=== PATIENT | female | born 1995 | race Caucasian/White ===

== ENCOUNTER → 2020-01-19 14:43 | Outpatient (BNVA) | payer BC, OTHER, SELFPAY | PROVIDERS: Family Provider Family Medicine; PCP Family Medicine; Visit Provider Nurse Practitioner Family | DX: R06.02 Shortness of breath (principal); J10.1 Influenza due to other identified influenza virus with other respiratory manifestations | CPT/HCPCS: 71046; 87804 ==

== ENCOUNTER 2020-05-28 07:07 | Outpatient (CLI) | payer BC, SELFPAY ==
--- NOTE | 2020-05-28 07:15 | US_ITS ---
WS: [id number] Right breast ultrasound, 05/28/2020 Clinical Data: right breast lump and nipple pain Comparison: None. Findings: The right breast was examined in the upper inner quadrant and around the areola. Only normal breast t issue was seen. There were no cysts or masses. For comparison the left areola was imaged and there is no difference in the appearance. US/US breast RT limited* [id number] Impression: 1. Negative right breast ultrasound. 2. Recommend return to clinical physician. BIRADS: 1-Negative FOLLOW UP: See Report
== END 2020-05-28 07:08 | disposition home or self-care (01) ==
LOC: RAD 07:11
PROVIDERS: PCP Family Medicine; Visit Provider Nurse Practitioner Women's Health
DX: N63.10 Unspecified lump in the right breast, unspecified quadrant (principal); N64.4 Mastodynia
CPT/HCPCS: 76642

== ENCOUNTER → 2020-12-02 08:49 | Outpatient (BNVA) | payer BC, SELFPAY | PROVIDERS: PCP Family Medicine; Visit Provider Nurse Practitioner Women's Health | DX: N93.9 Abnormal uterine and vaginal bleeding, unspecified (principal); R68.82 Decreased libido | CPT/HCPCS: 84443; 84702; 85025 ==

== ENCOUNTER → 2022-06-09 09:28 | Outpatient (BNVA) | payer BC, SELFPAY | PROVIDERS: PCP Family Medicine; Visit Provider Nurse Practitioner Women's Health | DX: Z01.419 Encounter for gynecological examination (general) (routine) without abnormal findings (principal); N63.12 Unspecified lump in the right breast, upper inner quadrant | CPT/HCPCS: 88175 ==

== ENCOUNTER → 2025-09-25 16:25 | Outpatient (BNVA) | payer OTHER, SELFPAY | PROVIDERS: PCP Family Medicine; Visit Provider Nurse Practitioner Women's Health | DX: Z01.419 Encounter for gynecological examination (general) (routine) without abnormal findings (principal) | CPT/HCPCS: 87624 ==